=== PATIENT | male | born 1970 | race Caucasian/White ===

== ENCOUNTER 2024-03-09 21:56 | Emergency (ER) | payer OTHER, SELFPAY ==
[2024-03-09] VITALS (10 sets, daily range): BP systolic 135–158; BP diastolic 88–100; PULSE 87–100; RESP 15–17; TEMP 36.8; O2SAT 97–100
--- NOTE | ~2024-03-09 | XR_ITS ---
EXAMINATION: XR foot RT min 3V DATE: 03/10/2024 00:16 INDICATION: Laceration at the right foot TECHNIQUE: Dorsoplantar, oblique and lateral views of the right foot were obtained. COMPARISON: None. FINDINGS: Alignment is normal. No fracture. Joint spaces are normal. Small Achilles calcaneal spur. Soft tissue s are unremarkable. No radiopaque foreign bodies. IMPRESSION: 1. No radiopaque foreign bodies or acute osseous abnormality. Reviewed, dictated and finalized at location A.
[2024-03-09] MEDS: TETANUS,DIPHTHERIA,AC PERTUSSIS ADULT (0.5 ML) BOOSTRIX IM (22:24)
--- NOTE | 2024-03-09 23:23 | PC.NURSE ---
ERNESTO Doll in room with patient.
--- NOTE | 2024-03-09 23:34 | PC.NURSE ---
PA in room suturing patient.
--- NOTE | 2024-03-09 23:59 | PC.NURSE ---
Patient ambulated to the bathroom with a steady gait after PA sutured and dressed wound.
--- NOTE | 2024-03-10 00:02 | ED.WOUNDLAC ---
HPI - Wound/Laceration General Chief Complaint: Wound/Laceration Stated Complaint: lac to right foot Time Seen by Provider: 03/09/24 22:15 Source: patient Mode of arrival: ambulatory Limitations: no limitations History of Present Illness HPI narrative: This is a 53 year old male that presents to the ER for laceration to the right great toe. Reports he stepped on a scythe. Reports bleeding and pain to the area. Reports decreased ROM. Denies numbness. Related Data Allergies Allergy/AdvReac Type Severity Reaction Status Date / Time No Known Allergies Allergy Mild Verified 03/09/24 22:10 Review of Systems Review of Systems: CONSTITUTIONAL: Denies fever MUSCULOSKELETAL: Denies joint pain, or myalgia. NEUROLOGIC: Denies numbness All systems reviewed & are unremarkable except as noted in HPI and below PMFSH Past Medical History Medical History (Updated 03/10/24 @ 00:59 by Sharmila Mcgarry PA-C) No active medical problems Social History Social History (Updated 03/10/24 @ 01:04 by Sharmila Mcgarry PA-C) Substance use: never Exam Narrative: GENERAL: Well-appearing, well-nourished, and in no acute distress. HEAD: Normocephalic, atraumatic. EYES: EOMI. EXTREMITIES: Patient unable to flex the great toe. No edema. 3.5cm linear laceration into subcutaneous tissue on the plantar aspect of the right great toe at the base. There is an associated laceration of the flexor hallucis longus tendon. Normal DP pulse. Normal sensation SKIN: Warm, dry, no rash. NEURO: No focal deficits. Alert and oriented x3. PSYCH: Normal mood and affect Course Course Emergency Course: I did initially consult Dr. Villalta who was planning on me suturing skin and him following up in clinic. Patient wishes to be transferred for further management. Patient will be transferred by private vehicle Consultations Consultation #1: Spoke with [facility], Dr. Bejarano who accepts patient as transfer Date: 03/10/24 Vital Signs Vital signs: Vital Signs Temperature 98.2 F 03/09/24 22:06 Pulse Rate 100 03/09/24 22:06 Respiratory Rate 15 03/09/24 22:06 Blood Pressure 158/100 H 03/09/24 22:06 Pulse Oximetry 98 08/17/24 22:06 Oxygen Delivery Room Air 03/09/24 22:06 Temperature 98.2 F 03/09/24 22:06 Pulse Rate 87 03/09/24 23:24 Respiratory Rate 17 03/09/24 23:24 Blood Pressure 137/94 H 03/09/24 23:24 Pulse Oximetry 99 03/09/24 23:24 Oxygen Delivery Room Air 03/09/24 22:06 MDM - Wound/Laceration MDM Narrative Medical decision making narrative: Patient presents to the emergency department for a complex laceration on the plantar aspect of his great toe. This involves his flexor hallucis longus tendon. Patient unable to flex the great toe. Wound was irrigated. Patient updated on tetanus and given a dose of Ancef. I did initially consult Dr. Villalta who was planning on me suturing skin and him following up in clinic. Patient wishes to be transferred for further management. Spoke with [facility], Dr. Bejarano who accepts patient as transfer. Patient will be transferred by private vehicle Differential Diagnosis Differential diagnosis: Likely laceration, abrasion, avulsion of skin and other (Tendinous injury) Imaging Data My impression: Right foot x-ray: no acute osseous abnormality Critical Care Time Critical Care Time Critical Care Time: No Discharge Plan Discharge Clinical Impression: Foot laceration involving tendon Qualifiers: Encounter type: initial encounter Laterality: right Qualified Code(s): S91.311A - Laceration without foreign body, right foot, initial encounter Patient Disposition: Acute Care Hospital Condition: Stable Additional Instructions: You were updated on tetanus vaccination. Given a dose of Ancef. Report directly to [facility] for further management. Do not eat or drink on the way Follow-up/Referrals: PHYSICIAN NOT ON STAFF,NONSTAFF [Primary Care Provider] -
[2024-03-10] MEDS: ceFAZolin SODIUM 1 GM VIAL IM (00:48)
[2024-03-10] MEDS: WATER, STERILE FOR INJECTION 10 ML VIAL XX (00:48)
[2024-03-10 00:51] VITALS: BP 146/99; PULSE 79; RESP 17; TEMP 36.7; O2SAT 99
== END 2024-03-10 01:17 | disposition short-term general hospital (02) ==
PROVIDERS: Emergency Provider Physician Assistant
DX: S91.311A Laceration without foreign body, right foot, initial encounter (principal); Z23 Encounter for immunization; W45.8XXA Other foreign body or object entering through skin, initial encounter
CPT/HCPCS: 73630; 90471; 90715; 96372; 99283; J0690